=== PATIENT | male | born 1995 | race Caucasian/White ===

== ENCOUNTER 2021-12-24 14:36 | Emergency (ER) | payer BC ==
--- NOTE | 2021-12-24 17:21 | ER ---
Nurse's Notes [facility] Name: Micah Garzon Age: 26 yrs Sex: Male : 1995 Arrival Date: 12/24/2021 Time: 14:39 Bed DIS4 Private MD: Diagnosis: Coronavirus infection, unspecified Presentation: 12/24 15:20 Chief complaint: Patient states: fever, cough, NV and body aches x 3 days; denies ABD vg1 pain. Stated highest temperature at home was 99.9. Coronavirus screen: Vaccine status: Patient reports being unvaccinated. Client denies travel out of the [place] in the last 14 days. Ebola Screen: Patient denies exposure to infectious person. Patient denies travel to an Ebola-affected area in the 21 days before illness onset. Initial Sepsis Screen: Does the patient meet any 2 criteria? No. Patient's initial sepsis screen is negative. Does the patient have a suspected source of infection? No. Patient's initial sepsis screen is negative. Risk Assessment: Do you want to hurt yourself or someone else? Patient reports no desire to harm self or others. Onset of symptoms was December 21, 2021. 15:20 Method Of Arrival: Ambulatory vg1 15:20 Acuity: JORGE 4 vg1 Triage Assessment: 15:22 General: Appears uncomfortable, Behavior is calm, cooperative. Pain: Complains of pain vg1 in generalize body Pain currently is 5 out of 10 on a pain scale. Respiratory: Reports cough that is dry, Airway is patent Respiratory effort is even, unlabored. GI: Reports nausea, vomiting. Historical: - Allergies: 15:22 No Known Allergies; vg1 - Home Meds: 15:22 None [Active]; vg1 - PMHx: 15:22 None; vg1 - PSHx: 15:22 None; vg1 - Immunization history:: Client reports having NOT received the Covid vaccine. - Social history:: Smoking status: Patient denies any tobacco usage or history of. Screenin:35 Abuse screen: Denies threats or abuse. Denies injuries from another. Nutritional ss screening: No deficits noted. Tuberculosis screening: Fall Risk None identified. Assessment: 17:35 General: Appears in no apparent distress. comfortable, Behavior is calm, cooperative, ss Denies fever, feeling ill, fatigue, chills. Neuro: Morales Agitation-Sedation Scale (RASS): 0 - Alert and Calm. Cardiovascular: Capillary refill < 3 seconds is brisk in bilateral fingers Patient's skin is warm and dry. Respiratory: Airway is patent Respiratory effort is even, unlabored, Respiratory pattern is regular, symmetrical. Derm: Skin is intact, is healthy with good turgor, Skin is dry, Skin is pink, warm \T\ dry. normal. Musculoskeletal: Circulation, motion, and sensation intact. Range of motion: intact in all extremities, Swelling absent. Vital Signs: 15:20 BP 95 / 59; Pulse 90; Resp 16; Temp 98.3(O); Pulse Ox 98% on R/A; Weight 135.17 kg; vg1 Height 5 ft. 10 in. (177.80 cm); Pain 5/10; 15:25 BP 100 / 67; vg1 15:20 Body Mass Index 42.76 (135.17 kg, 177.80 cm) vg1 ED Course: 14:39 Patient arrived in ED. mr 15:22 Triage completed. vg1 15:22 Arm band placed on. vg1 15:28 COVID swab sent to lab. Flu and/or RSV swab sent to lab. vg1 15:48 [facility] Buchanan [facility] 15:48 Nino Nelson MD is Attending Physician. [facility] 17:11 Veronica Foy, SAPNA is Primary Nurse. ss 17:35 Patient has correct armband on for positive identification. Bed in low position. Call ss light in reach. 17:35 No provider procedures requiring assistance completed. Patient did not have IV access ss during this emergency room visit. Administered Medications: No medications were administered Medication: 17:35 VIS not applicable for this client. ss Outcome: 17:21 Discharge ordered by MD. [facility] 17:35 Discharged to home ambulatory. ss 17:35 Condition: good 17:35 Discharge instructions given to patient, Instructed on discharge instructions, follow up and referral plans. Demonstrated understanding of instructions, follow-up care, Prescriptions given X 2. 17:40 Patient left the ED. ss Signatures: Michael Buchanan PA PA jmm Priyank Hannah mr Veronica Foy, SAPNA RN Zulema Faye RN RN vg1 Corrections: (The following items were deleted from the chart) 17:39 17:35 Client placed on continuous cardiac and pulse oximetry monitoring. NIBP ss monitoring applied. ss
--- NOTE | 2021-12-24 17:22 | EDPHYS ---
Physician Documentation [facility] Name: Micah Garzon Age: 26 yrs Sex: Male : 1995 Arrival Date: 12/24/2021 Time: 14:39 Bed DIS4 Private MD: ED Physician Nino Nelson HPI: 12/24 17:19 This 26 yrs old Male presents to ER via Ambulatory with complaints of Fever, Cough. jmm 17:19 Onset: The symptoms/episode began/occurred gradually, 3 day(s) ago. Modifying factors: jmm there are no obvious modifying factors. Associated signs and symptoms: Pertinent positives: cough. This is a 26 year old male with no chronic medical conditions that presents to the ED with complaints of cough, sore throat, fever beginning approx 3 days ago. Denies abdominal pain, denies vomiting, denies shortness of breath. . Historical: - Allergies: 15:22 No Known Allergies; vg1 - Home Meds: 15:22 None [Active]; vg1 - PMHx: 15:22 None; vg1 - PSHx: 15:22 None; vg1 - Immunization history:: Client reports having NOT received the Covid vaccine. - Social history:: Smoking status: Patient denies any tobacco usage or history of. ROS: 17:19 Constitutional: Positive for body aches. jmm 17:19 ENT: Positive for sore throat. 17:19 Respiratory: Positive for cough. 17:19 All other systems are negative. Exam: 17:19 Constitutional: This is a well developed, well nourished patient who is awake, alert, jmm and in no acute distress. Head/Face: atraumatic. Eyes: EOMI, no conjunctival erythema appreciated ENT: Moist Mucus Membranes Neck: Trachea midline, Supple Chest/axilla: Normal chest wall appearance and motion. Cardiovascular: Regular rate and rhythm. No edema appreciated Respiratory: Normal respirations, no respiratory distress appreciated Abdomen/GI: Non distended Back: Normal ROM Skin: General appearance color normal MS/ Extremity: Moves all extremities, no obvious deformities appreciated, no edema noted to the lower extremities Neuro: Awake and alert Psych: Behavior is normal, Mood is normal, Patient is cooperative and pleasant Vital Signs: 15:20 BP 95 / 59; Pulse 90; Resp 16; Temp 98.3(O); Pulse Ox 98% on R/A; Weight 135.17 kg; vg1 Height 5 ft. 10 in. (177.80 cm); Pain 5/10; 15:25 BP 100 / 67; vg1 15:20 Body Mass Index 42.76 (135.17 kg, 177.80 cm) vg1 MDM: 17:19 Patient medically screened. [facility] 17:20 Data reviewed: vital signs, nurses notes. Counseling: I had a detailed discussion with [facility] the patient and/or guardian regarding: the historical points, exam findings, and any diagnostic results supporting the discharge/admit diagnosis, the need for outpatient follow up, to return to the emergency department if symptoms worsen or persist or if there are any questions or concerns that arise at home. ED course: Patient is alert and non toxic in appearance in the ED. No signs of resp distress. patient advised to follow up with pcp and otherwise given strict return precautions. patient understood and agrees with the plan of care. . 12/24 15:25 Order name: Flu; Complete Time: 16:49 [facility] 12/24 15:25 Order name: SARS-COV-2 RT PCR (Document "Date of Onset" if Symptomatic); Complete Time: 1 17:03 Administered Medications: No medications were administered Disposition: 17:42 Co-signature as Attending Physician, Nino Nelson MD I agree with the assessment and kdr plan of care. Disposition Summary: 12/24/21 17:21 Discharge Ordered Location: Home [facility] Condition: Stable [facility] Diagnosis - Coronavirus infection, unspecified [facility] Followup: [facility] - With: Private Physician - When: 2 - 3 days - Reason: Recheck today's complaints, Continuance of care, Re-evaluation by your physician Discharge Instructions: - Discharge Summary Sheet [facility] - COVID-19 [facility] Forms: - Medication Reconciliation Form [facility] - Thank You Letter [facility] - Antibiotic Education [facility] - Prescription Opioid Use [facility] Prescriptions: - albuterol sulfate 90 mcg/actuation Inhalation HFA aerosol inhaler - inhale 2 puff by INHALATION route every 4 hours; 1 Pump; Refills: 0, Product [facility] Selection Permitted - promethazine-DM - take 5 milliliter by ORAL route every 4-6 hours; 120 milliliter; Refills: 0, [facility] Product Selection Permitted Signatures: Dispatcher [employer] Nino Billings, MD MD kdr Michael Buchanan PA PA jmm Garcia, Victoria, RN RN vg1
[2021-12-24 17:47] VITALS: TEMP 98.3; O2SAT 98
[2021-12-24 17:51] VITALS: BP 100/67
== END 2021-12-24 17:40 | disposition home or self-care (01) ==
LOC: ER 14:36
DX: U07.1 COVID-19 (principal)
CPT/HCPCS: 87804 ×2; 99283; U0003